=== PATIENT | male | born 1980 | race Caucasian/White ===

== ENCOUNTER → 2017-08-12 | Outpatient (CLI) | payer BC ==
--- NOTE | 2017-08-12 13:08 | MRI ---
STUDY: MRI OF THE LUMBAR SPINE HISTORY: Low back pain. Comparison: None. Technique: Multiplanar multi-sequence MRI of the lumbar spine was performed. Sagittal T1, sagittal T 2, and STIR images, axial T1, and axial T2 images were obtained. Findings: Sagittal images: Vertebral body heights and alignment are within normal limits. Marrow signal is age-appropriate. No m arrow edema is identified. There is degenerative disc disease and disc bulge at L5/S1. The conus medullaris is normal in appearance terminating at the level of L1. Axial images: T12 -- L1: Normal. L1 -- L2: There is bilateral facet arthropathy and ligamentum flavum infolding. The central canal and neural foramina are adequate. L2 -- L3: There is a shallow disc bulge, bilateral facet arthropathy and ligamentum flavum infolding. The central canal and neural foramina are adequate. L3 -- L4: There is a shallow disc bulge, bilateral facet arthropathy and ligamentum flavum infolding. The central canal and neural foramina are adequate. L4 -- L5: There is a shallow disc bulge, bilateral facet arthropathy and ligamentum flavum infolding. The central canal and neural foramina are adequate. L5 -- S1: There is focal central disc herniation. Overall, the central canal is adequate. There may b e some contact with the traversing S1 nerve root in the left lateral recess. There is moderate left n eural foraminal stenosis. The right neural foramen is adequate. IMPRESSION: 1. Multilevel lumbar spondylosis, most notable at L5/S1. 2. Disc herniation at L5/S1, with possible contact with the traversing left S1 nerve root. 3. No significant spinal stenosis. 4. Moderate left neural foraminal stenosis at L5/S1. Reported By:
== END | disposition home or self-care (01) | DRG 552 ==
LOC: RAD 10:21
PROVIDERS: ATTEND Internal Medicine
DX: M54.5 Low back pain (principal); M47.897 Other spondylosis, lumbosacral region; M48.07 Spinal stenosis, lumbosacral region
CPT/HCPCS: 72148